=== PATIENT | female | born 1965 | race Caucasian/White ===

== ENCOUNTER 2017-07-06 06:50 | Inpatient (IN) | payer MEDICAID ==
[~2017-07-06] VITALS: Ht 160 cm; Wt 52.2 kg
[2017-07-06] MEDS ORDERED: PLEASE ENTER HEIGHT AND WEIGHT MC SCH (07:00)
[2017-07-06] MEDS ORDERED: LORazepam 1MG TABLET PO ONE (07:00)
[2017-07-06] MEDS ORDERED: LORazepam 1MG TABLET ONE (07:03)
[2017-07-06] MEDS ORDERED: SODIUM CHLORIDE 0.9% 1,000 ML IV STA (09:44)
[2017-07-06] MEDS ORDERED: SODIUM CHLORIDE 0.9% 1,000 ML IV ONE (10:00)
[2017-07-06] MEDS ORDERED: NS + 20MEQ KCL 1,000 ML IV SCH (10:59)
[2017-07-06] MEDS ORDERED: ONDANSETRON 2MG/ML, 2ML IVPush PRN (11:00)
[2017-07-06] MEDS ORDERED: hydrALAzine 20 MG/ML, 1ML IVPush PRN (11:00)
[2017-07-06 11:32] LABS: HEMATOCRIT 37.1 % (34.6-47.8); HEMOGLOBIN 12.6 g/dL (11.7-16.4); WHITE BLOOD COUNT 5.9 x10^3/uL (3.4-10)
[2017-07-06 11:44] LABS: ASPARTATE AMINO TRANSFERASE 21 U/L (15-37); BLOOD UREA NITROGEN 9 mg/dL (7-18)
[2017-07-06] MEDS ORDERED: NS + 20MEQ KCL 1,000 ML IV ONE (11:48)
[2017-07-06] MEDS: SODIUM CHLORIDE 0.9% 1,000 ML IV SCH ×3 (11:50→18:44)
[2017-07-06 13:28] VITALS: BP 100/64
[2017-07-06] MEDS ORDERED: MORPHINE SULFATE 4 MG/ML, 1ML ONE ×2 (13:38→17:02)
[2017-07-06] MEDS: morphine SULFATE 10 MG/ML, 1ML IVPush PRN ×3 (13:39→22:10)
[2017-07-06 17:40] LABS: DAU SCREEN DISCLAIMER
[2017-07-06 19:11] VITALS: BP 101/66
[2017-07-06] MEDS: NS + 20MEQ KCL 1,000 ML IV SCH (20:13)
[2017-07-07] MEDS: SODIUM CHLORIDE 0.9% 1,000 ML IV SCH ×4 (00:19→23:21)
[2017-07-07 01:42] VITALS: BP 102/63
[2017-07-07] MEDS: morphine SULFATE 10 MG/ML, 1ML IVPush PRN ×5 (01:46→21:08)
[2017-07-07] MEDS: NS + 20MEQ KCL 1,000 ML IV SCH (04:51)
[2017-07-07 05:17] LABS: BLOOD UREA NITROGEN 7 mg/dL (7-18)
[2017-07-07 07:20] VITALS: BP 103/62
[2017-07-07 12:30] VITALS: BP 101/68
[2017-07-07 18:28] VITALS: BP 108/68
[2017-07-08 00:01] VITALS: BP 117/72
[2017-07-08] MEDS: morphine SULFATE 10 MG/ML, 1ML IVPush PRN ×4 (00:05→22:11)
[2017-07-08] MEDS: SODIUM CHLORIDE 0.9% 1,000 ML IV SCH ×3 (06:05→21:09)
[2017-07-08 08:05] VITALS: BP 115/75
[2017-07-08] MEDS: LORazepam 2 MG/ML, 1ML IVPush PRN (09:59)
[2017-07-08 14:23] VITALS: BP 111/73
[2017-07-08] MEDS ORDERED: MORPHINE SULFATE 4 MG/ML, 1ML ONE (14:33)
[2017-07-08 21:03] VITALS: BP 115/73
[2017-07-09 01:45] VITALS: BP 108/72
[2017-07-09 04:57] LABS: HEMATOCRIT 39.1 % (34.6-47.8); HEMOGLOBIN 13.2 g/dL (11.7-16.4); WHITE BLOOD COUNT 5.9 x10^3/uL (3.4-10)
[2017-07-09 05:07] LABS: BLOOD UREA NITROGEN 9 mg/dL (7-18)
[2017-07-09 05:12] LABS: ASPARTATE AMINO TRANSFERASE 13 U/L (15-37)
[2017-07-09] MEDS: SODIUM CHLORIDE 0.9% 1,000 ML IV SCH ×4 (05:54→21:08)
[2017-07-09 08:33] VITALS: BP 112/64
[2017-07-09] MEDS ORDERED: FENTANYL PF 100 MCG/2ML ONE (08:57)
[2017-07-09] MEDS ORDERED: MIDAZOLAM 1 MG/ML, 2ML ONE (08:57)
[2017-07-09] MEDS ORDERED: CEFAZOLIN 1,000 MG ONE ×2 (08:58)
[2017-07-09] MEDS ORDERED: EPINEPHRINE 1 MG/ML, 1ML ONE ×2 (08:59→09:03)
[2017-07-09] MEDS ORDERED: BUPIVACAINE/PF 0.5% ONE (08:59)
[2017-07-09] MEDS ORDERED: NEOSPORIN OINT, 15GM ONE (08:59)
[2017-07-09] MEDS ORDERED: BUPIVACAINE/PF 0.25% ONE (09:01)
[2017-07-09] MEDS ORDERED: DEXAMETHASONE 4 MG/ML, 1ML ONE ×2 (09:29)
[2017-07-09] MEDS ORDERED: ACETAMINOPHEN 325 MG TABLET PO PRN (10:00)
[2017-07-09] MEDS ORDERED: HYDROmorphone 1 MG/ML, 1ML IV PRN (10:00)
[2017-07-09] MEDS ORDERED: OXYcodone 5 MG/5 ML ORAL.SOL UDC PO PRN (10:00)
[2017-07-09] MEDS ORDERED: ONDANSETRON 2MG/ML, 2ML IVPush PRN (10:00)
[2017-07-09] MEDS ORDERED: ALBUTEROL SULFATE 2.5 MG/3 ML NPPB PRN (10:00)
[2017-07-09] MEDS ORDERED: MEPERIDINE/PF 25MG/0.5ML IVPush PRN (10:00)
[2017-07-09] MEDS ORDERED: hydrALAzine 20 MG/ML, 1ML IV PRN (10:00)
[2017-07-09] MEDS ORDERED: PROMETHAZINE 25 MG/ML, 1ML IV PRN (10:00)
[2017-07-09] MEDS ORDERED: LABETALOL 5MG/ML, 20ML IV PRN (10:00)
[2017-07-09] MEDS ORDERED: FENTANYL PF 100 MCG/2ML IV PRN (10:00)
[2017-07-09] MEDS ORDERED: ONDANSETRON 2MG/ML, 2ML ONE (10:48)
[2017-07-09] MEDS ORDERED: KETOROLAC 30 MG/1 ML ONE (10:48)
[2017-07-09] MEDS ORDERED: HYDROmorphone 1 MG/ML, 1ML ONE (11:00)
[2017-07-09] MEDS: KETOROLAC 30 MG/1 ML IVPush SCH ×2 (11:30→19:58)
[2017-07-09 14:30] VITALS: BP 117/85
[2017-07-09] MEDS: CEFAZOLIN PMX 1GM/50ML 50 ML IVPB SCH (16:38)
[2017-07-09 19:12] VITALS: BP 96/65
[2017-07-09] MEDS: morphine SULFATE 10 MG/ML, 1ML IVPush PRN ×2 (19:58→23:52)
[2017-07-10 00:07] VITALS: BP 91/53
[2017-07-10] MEDS: CEFAZOLIN PMX 1GM/50ML 50 ML IVPB SCH (02:38)
[2017-07-10 03:59] VITALS: BP 98/59
[2017-07-10] MEDS: KETOROLAC 30 MG/1 ML IVPush SCH (04:10)
[2017-07-10] MEDS: SODIUM CHLORIDE 0.9% 1,000 ML IV SCH (04:20)
[2017-07-10 05:13] LABS: HEMATOCRIT 31.9 % (34.6-47.8); HEMOGLOBIN 10.7 g/dL (11.7-16.4); WHITE BLOOD COUNT 11.8 x10^3/uL (3.4-10)
[2017-07-10 06:53] VITALS: BP 102/67
[2017-07-10] MEDS: OXYcodone IR 5MG TABLET PO PRN ×2 (12:35→17:48)
[2017-07-10 13:37] VITALS: BP 117/76
[2017-07-10] MEDS: morphine SULFATE 10 MG/ML, 1ML IVPush PRN ×2 (15:30→21:59)
[2017-07-10] MEDS: LORazepam 2 MG/ML, 1ML IVPush PRN (15:46)
[2017-07-10] MEDS: ACETAMINOPHEN 325 MG TABLET PO PRN (17:48)
[2017-07-10 20:32] VITALS: BP 114/71
[2017-07-10] MEDS ORDERED: MORPHINE SULFATE 4 MG/ML, 1ML ONE (21:57)
[2017-07-10] MEDS: MAGNESIUM HYDROXIDE 8%, 30ML UDC PO SCH (21:59)
[2017-07-10] MEDS: SENNA/DOCUSATE TABLET PO SCH (21:59)
[2017-07-11] MEDS ORDERED: MORPHINE SULFATE 4 MG/ML, 1ML ONE (01:47)
[2017-07-11] MEDS: morphine SULFATE 10 MG/ML, 1ML IVPush PRN ×2 (01:49→17:45)
[2017-07-11 01:54] VITALS: BP 123/82
[2017-07-11] MEDS: OXYcodone IR 5MG TABLET PO PRN ×4 (05:12→15:07)
[2017-07-11 05:21] LABS: WHITE BLOOD COUNT 6.2 x10^3/uL (3.4-10)
[2017-07-11 07:57] VITALS: BP 121/79
[2017-07-11] MEDS: ACETAMINOPHEN 325 MG TABLET PO PRN ×2 (08:32→15:07)
[2017-07-11] MEDS: SENNA/DOCUSATE TABLET PO SCH ×2 (08:35→19:26)
[2017-07-11 13:30] VITALS: BP 106/70
[2017-07-11] MEDS ORDERED: BISACODYL 10 MG SUPP PR PRN (16:00)
[2017-07-11] MEDS: RIVAROXABAN 10 MG TABLET PO SCH (17:45)
[2017-07-11] MEDS: MAGNESIUM HYDROXIDE 8%, 30ML UDC PO SCH (19:26)
[2017-07-11 20:18] VITALS: BP 113/69
[2017-07-12] MEDS: OXYcodone IR 5MG TABLET PO PRN ×2 (02:42→09:33)
[2017-07-12 02:43] VITALS: BP 112/73
[2017-07-12 05:15] LABS: HEMATOCRIT 37.4 % (34.6-47.8); HEMOGLOBIN 12.6 g/dL (11.7-16.4); WHITE BLOOD COUNT 7.1 x10^3/uL (3.4-10)
[2017-07-12 07:59] VITALS: BP 96/60
[2017-07-12] MEDS: SENNA/DOCUSATE TABLET PO SCH ×2 (09:33→21:00)
[2017-07-12] MEDS: OxyconTIN ER 20 MG TAB.ER PO SCH ×2 (10:49→22:13)
[2017-07-12] MEDS ORDERED: SODIUM CHLORIDE 0.9%, 500ML IVBOLUS ONE (13:00)
[2017-07-12 13:11] VITALS: BP 99/64
[2017-07-12] MEDS: RIVAROXABAN 10 MG TABLET PO SCH (17:48)
[2017-07-12] MEDS: MAGNESIUM HYDROXIDE 8%, 30ML UDC PO SCH (21:00)
[2017-07-12 21:14] VITALS: BP 107/70
[2017-07-13 03:42] VITALS: BP 109/72
[2017-07-13 06:48] VITALS: BP 112/59
[2017-07-13] MEDS: SENNA/DOCUSATE TABLET PO SCH ×2 (09:51→21:00)
[2017-07-13] MEDS: OxyconTIN ER 20 MG TAB.ER PO SCH ×2 (10:00→22:00)
[2017-07-13 13:10] VITALS: BP 103/69
[2017-07-13] MEDS: RIVAROXABAN 10 MG TABLET PO SCH (17:20)
[2017-07-13 19:11] VITALS: BP 109/61
[2017-07-13] MEDS: MAGNESIUM HYDROXIDE 8%, 30ML UDC PO SCH (21:00)
[2017-07-14 01:30] VITALS: BP 104/65
[2017-07-14] MEDS: OxyconTIN ER 20 MG TAB.ER PO SCH (07:15)
[2017-07-14] MEDS: SENNA/DOCUSATE TABLET PO SCH (07:15)
[2017-07-14 08:11] VITALS: BP 114/71
[2017-07-14] MEDS ORDERED: TRAM50TA2 PO (08:12)
[2017-07-14] MEDS ORDERED: IBUP-1222 PO (08:12)
[2017-07-14] MEDS ORDERED: ASPI-650 PO (08:12)
[2017-07-14] MEDS ORDERED: PNEUMOCOCCAL 23 VACCINE IM-VACC ONE (10:00)
== END 2017-07-14 10:50 | disposition home or self-care (01) | DRG 515 ==
LOC: ED 08:03 → EDIP 09:17 → 4NOR 13:15
PROVIDERS: ADMIT Hospitalist; ATTEND Internal Medicine
PROC: 0QSF04Z Reposition Left Patella with Internal Fixation Device, Open Approach (ICD-10-PCS; principal; 2017-07-08)
PROC: 3E0234Z Introduction of Serum, Toxoid and Vaccine into Muscle, Percutaneous Approach (ICD-10-PCS; 2017-07-14)
DX: S82.032A Displaced transverse fracture of left patella, initial encounter for closed fracture (principal); E43 Unspecified severe protein-calorie malnutrition; D72.829 Elevated white blood cell count, unspecified; S42.001A Fracture of unspecified part of right clavicle, initial encounter for closed fracture; F15.10 Other stimulant abuse, uncomplicated; F17.200 Nicotine dependence, unspecified, uncomplicated; S82.042A Displaced comminuted fracture of left patella, initial encounter for closed fracture; W01.0XXA Fall on same level from slipping, tripping and stumbling without subsequent striking against object, initial encounter; F32.9 Major depressive disorder, single episode, unspecified; Z53.9 Procedure and treatment not carried out, unspecified reason; Y93.01 Activity, walking, marching and hiking; M25.511 Pain in right shoulder; Z68.20 Body mass index [BMI] 20.0-20.9, adult; Y92.481 Parking lot as the place of occurrence of the external cause; Z79.01 Long term (current) use of anticoagulants; Y99.8 Other external cause status; Z23 Encounter for immunization
CPT/HCPCS: 36415; 71010; 76001; 80048; 80053; 80307; 81001; 83735; 84100; 85025; 85610; 90732; 93005; 99285; J0171; J0690; J1100; J1170; J1885; J2250; J2405; J3010; J3480; J3490; G0479; J2060; J2270; J7030; J7040

== ENCOUNTER 2017-10-27 22:34 | Emergency (ER) | payer MEDICAID ==
[~2017-10-27] VITALS: Ht 160 cm; Wt 51.1 kg
[~2017-10-27 22:34] MED LIST: ASPI-650 PO; IBUP-1222 PO; TRAM50TA2 PO
[2017-10-27 22:45] VITALS: BP 114/74
[2017-10-28] MEDS ORDERED: IBUPROFEN 200 MG TABLET PO ONE
[2017-10-28] MEDS ORDERED: IBUPROFEN 200 MG TABLET ONE (00:01)
== END 2017-10-28 00:45 | disposition home or self-care (01) ==
LOC: ED 23:59
DX: S83.412A Sprain of medial collateral ligament of left knee, initial encounter (principal); S83.422A Sprain of lateral collateral ligament of left knee, initial encounter; G89.11 Acute pain due to trauma; Z98.890 Other specified postprocedural states; X58.XXXA Exposure to other specified factors, initial encounter; Y93.89 Activity, other specified; Y92.89 Other specified places as the place of occurrence of the external cause; Y99.8 Other external cause status
CPT/HCPCS: 72110; 99284

== ENCOUNTER 2017-11-24 21:13 | Observation (INO) | payer MEDICAID ==
[~2017-11-24] VITALS: Ht 167.6 cm; Wt 52.9 kg
[2017-11-24 21:53] LABS: HCG UR SG 1.022 (1.003-1.030)
[2017-11-24 21:58] LABS: CULTURE INDICATED? YES; MICROSCOPIC INDICATED
[2017-11-24 22:00] LABS: AMPHETAMINE SCREEN, URINE Positive (Negative); BARBITURATE SCREEN, URINE Negative (Negative); BENZODIAZEPINE SCREEN, URINE Negative (Negative); CANNABINOID SCREEN, URINE Negative (Negative); COCAINE SCREEN, URINE Negative (Negative); METHADONE SCREEN, URINE Negative (Negative); OPIATE SCREEN, URINE Negative (Negative)
[2017-11-24 22:53] LABS: BASOPHILS # (AUTO) 0.02 x10^3/uL (0-0.1); BASOPHILS % (AUTO) 0 % (0-1); EOSINOPHILS # (AUTO) 0.19 x10^3/uL (0-0.4); EOSINOPHILS % (AUTO) 3 % (1-7); LYMPHOCYTES # (AUTO) 2.02 x10^3/uL (1-3.4); LYMPHOCYTES % (AUTO) 37 % (22-44); MD NO; MEAN CORPUSCULAR HEMOGLOBIN 29.7 pg (27.0-34.8); MEAN CORPUSCULAR HGB CONC 33.2 g/dL (32.4-35.8); MEAN CORPUSCULAR VOLUME 89.3 fL (80-100); MEAN PLATELET VOLUME 7.6 fL (7.4-10.4); MONOCYTES # (AUTO) 0.58 x10^3/uL (0.2-0.8); MONOCYTES % (AUTO) 10 % (2-9); NEUTROPHILS # (AUTO) 2.72 x10^3/uL (1.8-6.8); NEUTROPHILS % (AUTO) 49 % (42-75); PLATELET COUNT 270 x10^3/uL (130-400); RED BLOOD COUNT 3.86 x10^6/uL (3.82-5.3); RED CELL DISTRIBUTION WIDTH 13.6 % (9.6-15.2)
[2017-11-24 23:03] LABS: ALANINE AMINOTRANSFERASE 24 U/L (12-78); ALBUMIN 3.1 g/dL (3.4-5.0); ANION GAP 6 mmol/L (5-15); CALCIUM 8.3 mg/dL (8.5-10.1); CHLORIDE 111 mmol/L (98-107); CREATININE 0.73 mg/dL (0.55-1.02)
[2017-11-24 23:05] LABS: ALKALINE PHOSPHATASE 105 U/L (45-117); BILIRUBIN,TOTAL 0.3 mg/dL (0.2-1.0); TOTAL PROTEIN 6.9 g/dL (6.4-8.2)
[2017-11-25] MEDS ORDERED: ZIPRASIDONE 20 MG INJ IM PRN (01:30)
[2017-11-25] MEDS ORDERED: ACETAMINOPHEN 325 MG TABLET PO PRN (01:30)
[2017-11-25] MEDS ORDERED: DIPHENHYDRAMINE 50 MG CAPSULE PO PRN ×2 (01:30)
[2017-11-25] MEDS: NICOTINE 7 MG/24 HR PATCH.TD24 TD SCH ×2 (01:30→09:09)
[2017-11-25] MEDS ORDERED: DIPHENHYDRAMINE 50 MG/ML, 1ML IM PRN (01:30)
[2017-11-25] MEDS ORDERED: ONDANSETRON ODT 4 MG PO PRN (01:30)
[2017-11-25] MEDS ORDERED: ZIPRASIDONE 20MG CAPSULE PO PRN (01:30)
[2017-11-25] MEDS ORDERED: DOCUSATE 100 MG CAPSULE PO PRN (01:30)
[2017-11-25] MEDS ORDERED: NICOTINE 7 MG/24 HR PATCH.TD24 ONE (09:08)
[2017-11-25] MEDS ORDERED: CIPROFLOXACIN 500 MG TABLET ONE ×2 (09:08→21:04)
[2017-11-25] MEDS: CIPROFLOXACIN 500 MG TABLET PO SCH ×2 (09:09→21:08)
[2017-11-25] MEDS ORDERED: DIPHENHYDRAMINE 25 MG CAPSULE ONE (21:04)
[2017-11-25] MEDS ORDERED: DIPHENHYDRAMINE 25 MG CAPSULE PO ONE (21:30)
[2017-11-25 23:19] VITALS: BP 106/72
[2017-11-26] MEDS ORDERED: NICOTINE 7 MG/24 HR PATCH.TD24 TD SCH (07:30)
[2017-11-26 08:34] VITALS: BP 97/66
[2017-11-26] MEDS: NICOTINE 7 MG/24 HR PATCH.TD24 TD SCH (09:00)
[2017-11-26] MEDS: CIPROFLOXACIN 500 MG TABLET PO SCH (09:15)
[2017-11-26 20:54] VITALS: BP 117/79
[2017-11-27 07:39] VITALS: BP 103/62
[2017-11-27] MEDS: NICOTINE 7 MG/24 HR PATCH.TD24 TD SCH (09:00)
== END 2017-11-27 16:06 ==
LOC: ED 21:47 → EDIP 11-25 01:21 → INTOOBSV 11-25 01:21 → SUATTDRO 11-25 01:24 → 2N 11-25 23:16
PROVIDERS: ADMIT Family Medicine; ATTEND Family Medicine
DX: R45.851 Suicidal ideations (principal); F33.2 Major depressive disorder, recurrent severe without psychotic features; F15.23 Other stimulant dependence with withdrawal; N39.0 Urinary tract infection, site not specified; R82.71 Bacteriuria; Z91.5 Personal history of self-harm
CPT/HCPCS: 36415; 80053; 80307; 81001; 81025; 85025; 87086; 93005; 99285; G0378; Q0163

== ENCOUNTER 2019-04-16 12:23 | Emergency (ER) | payer MEDICAID ==
[~2019-04-16] VITALS: Ht 162.6 cm; Wt 52.8 kg
[2019-04-16 12:36] VITALS: BP 119/79
[2019-04-16] MEDS ORDERED: IBUPROFEN 200 MG TABLET PO ONE (13:30)
[2019-04-16] MEDS ORDERED: IBUPROFEN 200 MG TABLET ONE (14:01)
--- NOTE | 2019-04-16 14:20 | NUR ---
BREAK RN: PT SITTING ON CHAIR IN ROOM AWAKE & COMFORTABLE, RESPONDS TO STAFF APPROP, NAD, NO NEEDS AT THIS TIME, CALL LIGHT WITHIN REACH.
[2019-04-16] MEDS ORDERED: HYDROcodone/APAP 5/325 TABLET ONE (14:40)
--- NOTE | 2019-04-16 14:51 | NUR ---
Patient given discharge instructions and Rx they have confirmed that they understand the instructions. Patient ambulatory with steady gait via crutch use.
[2019-04-16] MEDS ORDERED: HYDROcodone/APAP 5/325 TABLET PO ONE (15:00)
== END 2019-04-16 15:01 | disposition home or self-care (01) ==
LOC: ED 14:51
DX: S32.010A Wedge compression fracture of first lumbar vertebra, initial encounter for closed fracture (principal); S20.219A Contusion of unspecified front wall of thorax, initial encounter; S93.402A Sprain of unspecified ligament of left ankle, initial encounter; Z72.89 Other problems related to lifestyle; W17.2XXA Fall into hole, initial encounter; Y93.89 Activity, other specified; Y92.488 Other paved roadways as the place of occurrence of the external cause; Y99.8 Other external cause status
CPT/HCPCS: 71046; 99283